=== PATIENT | male | born 1990 | race Caucasian/White ===

== ENCOUNTER 2020-01-08 16:32 | Emergency (ER) | payer OTHER ==
[~2020-01-08] VITALS: Ht 195.6 cm; Wt 163.6 kg
[2020-01-08 16:43] VITALS: Ht 195.6 cm; Wt 163.6 kg
[2020-01-08] MEDS ORDERED: VOLTAREN75 MG PO (18:44)
[2020-01-08] MEDS ORDERED: METHOCARBAMOL500 MG PO (18:44)
[2020-01-08 19:00] VITALS: BP 160/74
== END 2020-01-08 19:00 | disposition home or self-care (01) ==
LOC: D.ER 16:32
DX: M54.5 Low back pain (principal); V89.2XXA Person injured in unspecified motor-vehicle accident, traffic, initial encounter; Y93.9 Activity, unspecified; Y92.9 Unspecified place or not applicable